=== PATIENT | male | born 1970 | race Caucasian/White ===

== ENCOUNTER 2021-05-03 07:33 | Emergency (ER) | payer BC ==
[2021-05-03] MEDS ORDERED: ACETAMINOPHEN TAB 500 MG TAB PO STA (07:51)
[2021-05-03] MEDS ORDERED: IBUPROFEN 600 MG TAB PO STA (07:51)
--- NOTE | 2021-05-03 08:00 | ED ---
General Adult HPI - General Source: patient, RN notes reviewed Mode of arrival: ambulatory Limitations: no limitations <Ferny Mccrary - Last Filed: 05/03/21 08:56> <Neli Hart - Last Filed: 05/04/21 00:15> - General Chief complaint: Fever Stated complaint: Covid+/Wants Antibodies Time Seen by Provider: 05/03/21 07:41 - History of Present Illness Initial comments: [id number] male with a past medical history of hyperlipidemia, hypertension presents to the emergency room for a chief complaint of antibody infusion. Patient states he developed symptoms of COVID-19 2 days ago and then tested positive with an at-home test yesterday. Patient did take Motrin and Tylenol yesterday but did not take it today. Patient states he has been having headaches and body aches as well as some minimal shortness of breath. Denies chest pain. Patient states he is here for antibody infusion. States his had this as well.Patient has no other complaints at this time including chest pain, abdominal pain, nausea or vomiting, headache, or visual changes. (Ferny Mccrary) - Related Data Allergies Allergy/AdvReac Type Severity Reaction Status Date / Time Sulfa (Sulfonamide Allergy Rash/Hives Verified 05/03/21 07:36 Antibiotics) Review of Systems ROS Other: All systems not noted in ROS Statement are negative. <Ferny Mccrary - Last Filed: 05/03/21 08:56> ROS Other: All systems not noted in ROS Statement are negative. <Neli Hart - Last Filed: 05/04/21 00:15> ROS Statement: Those systems with pertinent positive or pertinent negative responses have been documented in the HPI. Past Medical History Past Medical History: Hyperlipidemia, Hypertension, Thyroid Disorder History of Any Multi-Drug Resistant Organisms: None Reported Past Surgical History: Appendectomy Past Psychological History: No Psychological Hx Reported Smoking Status: Current every day smoker Past Alcohol Use History: Occasional Past Drug Use History: None Reported <Ferny Mccrary - Last Filed: 05/03/21 08:56> General Exam Limitations: no limitations General appearance: alert, in no apparent distress Head exam: Present: atraumatic Eye exam: Present: normal appearance, PERRL, EOMI. Absent: scleral icterus, conjunctival injection ENT exam: Present: normal exam, mucous membranes moist, TM's normal bilaterally Neck exam: Present: normal inspection, full ROM. Absent: tenderness, meningismus Respiratory exam: Present: normal lung sounds bilaterally. Absent: respiratory distress, wheezes Cardiovascular Exam: Present: regular rate, normal rhythm, normal heart sounds GI/Abdominal exam: Present: soft, normal bowel sounds. Absent: distended, tenderness <Ferny Mccrary - Last Filed: 05/03/21 08:56> Course Vital Signs 05/03/21 05/03/21 05/03/21 07:37 07:44 08:40 Temperature 101.6 F H 99.9 F H Pulse Rate 87 Respiratory 18 18 Rate Blood Pressure 163/96 O2 Sat by Pulse 95 Oximetry 05/03/21 09:43 Temperature 99.3 F Pulse Rate 77 Respiratory 16 Rate Blood Pressure 126/99 O2 Sat by Pulse 96 Oximetry Medical Decision Making <Ferny Mccrary - Last Filed: 05/03/21 08:56> <Neli Hart - Last Filed: 05/04/21 00:15> - Medical Decision Making Vitals are stable. Patient is febrile. Motrin and Tylenol ordered. Lungs are clear. Patient is vaccinated but does qualify for antibody infusion based on BMI. Patient was given this and discussed return parameters. We will follow up with his doctor. (Ferny Mccrary) I was available for consultation in the emergency department. The history and physical exam were done by the midlevel provider. I was consulted for this patients care. I reviewed the case with the midlevel provider and based on their presentation of the patient, I agree with the assessment, medical decision making and plan of care as documented. Chart was dictated using [email or web address] dictation software. Attempts were made to correct any dictation errors however some typographical errors may persist. Patient was seen during a national state of emergency due to the Covid-19 pandemic. (Neli Hart) - Lab Data Lab Results 05/03/21 Range/Units 07:59 Coronavirus (PCR) Detected A (Not Detectd) Disposition Is patient prescribed a controlled substance at d/c from ED?: No Time of Disposition: 07:59 <Ferny Mccrary - Last Filed: 05/03/21 08:56> <Neli Hart - Last Filed: 05/04/21 00:15> Clinical Impression: COVID-19 Disposition: HOME SELF-CARE Condition: Good Instructions (If sedation given, give patient instructions): Coronavirus Disease 2019 (COVID-19), Fever in Adults (ED) Additional Instructions: Please continue to take motrin and tylenol. Return to the ER for any worsening symptoms especially shortness of breath. Referrals: Rashi Rojas MD [Primary Care Provider] - 1-2 days
[2021-05-03] MEDS ORDERED: SODIUM CHLORIDE 0.9% 50 ML IVPB ONE (08:15)
[2021-05-03] MEDS ORDERED: BAMLANIVIMAB (EUA) 700 MG, ETESEVIMAB (EUA) 1,400 MG in SODIUM CHLORIDE 0.9% 100 ML IVPB ONE (08:15)
[2021-05-03 09:44] VITALS: BP 126/99; PULSE 77; RESP 16; TEMP 99.3
== END 2021-05-03 09:43 | disposition home or self-care (01) ==
LOC: EC 07:33
DX: U07.1 COVID-19 (principal); E78.5 Hyperlipidemia, unspecified; I10 Essential (primary) hypertension; F17.200 Nicotine dependence, unspecified, uncomplicated; Z72.89 Other problems related to lifestyle
CPT/HCPCS: 87635; 99284; J3490